=== PATIENT | male | born 1980 | race Hispanic/Latino ===

== ENCOUNTER 2024-11-16 11:53 | Emergency (ER) | payer OTHER, SELFPAY ==
[2024-11-16 11:58] VITALS: BP 166/93
[2024-11-16 15:07] VITALS: BP 134/78
--- NOTE | 2024-11-16 16:10 | ED.SKININJ ---
HPI-Injury
General
Chief Complaint: Skin Surface Trauma
Source: patient and fruit raiser (Language line)
Exam Limitations: none
Time Seen by Provider: 11/16/24 15:08
Nursing documentation reviewed up to this point in time: agreed with
History of Present Illness-Injury
Is this injury a work related problem?: Yes
Is pt an associate of [facility]/[place]?: No
Initial Injury comments:
Patient states a tree branch fell onto his head. Reports brief LOC. Sustained a large laceration to right posterior shoulder, contusion to right shoulder, sprain to left ankle. Incident occurred just [employer]. Tdap is UTD
Past History
Past History
ED Past Medical History: None
ED Past Surgical History: None
Social History
Tobacco: Non-smoker
Alcohol: None
Drug: None
Review of Systems
Review of Systems
Allergies reviewed?: Yes
All Other Systems: ROS reviewed and negative except as documented in HPI and ROS
Constitutional: Reports no symptoms
EENT: Reports no symptoms
Respiratory: Reports no symptoms
Cardiac: Reports no symptoms
ABD/GI: Reports no symptoms
: Reports no symptoms
Musculoskeletal: Reports joint pain (pain to left ankle, contusion right shoulder)
Skin: Reports other (laceration to right posterior ear)
Neurological: Reports headache
Psychiatric: Reports no symptoms
Skin Exam
Laceration
Right Posterior Ear:
Length in cm: 5
Orientation: vertical
Type of Laceration: layered
Any active bleeding?: low grade venous oozing
Distal skin color and temperature: normal-warm & good color
Normal distal neurovascular exam: Yes
Range of motion: full
Phy Exam
General Physical Exam
General Presentation: mild distress
General age: appears stated age
General Skin: warm and dry
General Habitus: normal
General Mental: alert
General Hydration: appears well hydrated
Eye Exam
Eye Exam: PERRL, cornea clear and conjunctiva normal
Neurological Exam
Neurological Exam: alert, oriented x3, CN II-XII intact, no motor deficits, no sensory deficits and speech normal
Musculoskeletal Exam
Musculoskeletal Exam: neuro vasc intact
Skin Exam
Skin Exam: normal color, warm/dry and no rash
Psychiatric Exam
Psychiatric Exam: normal mood/affect
Course
Orders/Labs/Results
Orders:
Orders
11/16/24 12:01
CT Head W/o Iv Contrast Stat
Comment:
Reason For Exam: pain, +LOC
Ankle, left 3 view CR [CR Ankle - Left Min 3 Views ] Stat
Comment:
Reason For Exam: pain
11/16/24 12:02
EKG [Electrocardiogram (*1)] Stat
Reason for Study: Vertigo / Dizzy
Shoulder, Right, Trauma [CR Shoulder, Trauma - Right] Stat
Comment:
Reason For Exam: pain/abrasion
11/16/24 16:04
Cephalexin Monohydrate [Keflex] 500 mg PO NOW STA
Vital Signs
Initial and Last Documented VS:
Initial Vital Signs
Temp Pulse Resp BP Pulse Ox
98.5 F 87 16 166/93 98
11/16/24 11:58 11/16/24 11:58 11/16/24 11:58 11/16/24 11:58 11/16/24 11:58
Last Documented Vital Signs
Temp Pulse Resp BP Pulse Ox
98.5 F 70 16 134/78 100
11/16/24 11:58 11/16/24 15:07 11/16/24 15:07 11/16/24 15:07 11/16/24 15:07
Procedures
Laceration Closure
Right Posterior Ear:
Status of Wound: clean
Description of Wound Edges: sharp
Preparation: cleaned with saline and cleaned with Betadine
Anesthesia: 1% Lidocaine
Wound exploration: explored to base- no FB
Type of Closure: layered closure
Skin Closure Material: 6-0 prolene (13) and 5-0 chromic gut
*Radiology
Radiology exam reviewed: radiology read reviewed
*Pulse Oximetry
Patient hypoxic: no
*Critical Care Note
Total Time (30-74mins, 75-104mins- exclusive of procedures): Not Applicable
ED Attending Note
-
Portions of this chart may have been created with voice recognition software.� Occasional wrong word or��sound alike� substitutions may have occurred due to the inherent limitations of voice recognition software.
Discharge Plan
Departure
Patient Disposition: Home (Routine Discharge)
Date of Disposition: 11/16/24
Time of Disposition: 16:04
Patient with high blood pressure during this ER visit?: No
Condition: Good
Covid-19: Not Applicable
Discharge Problem:
Head injury, Laceration of ear, Contusion of right shoulder, Ankle sprain
Instructions: Head injury in adults, Contusion (DC), Laceration Repair With Stitches (DC), Sprain (DC), Ibuprofen, Using Cold for Pain
Prescriptions:
New
cephalexin 500 mg capsule
500 mg PO BID 7 Days Qty: 14 0RF
Referrals:
NONE,* [Family Provider, Internal Medicine]
Stand Alone Forms: Return to Work
Activity Restrictions/Additional Instructions:
Follow up with your workman's comp provider on Tuesday. Sutures can be removed by your workman's comp provider in 5-7 days. Your prescription for your antibiotic was sent to [facility] in [place]
Interventions
Interventions:
*Risk Screen - Suicide Last Done: 11/16/24 11:58
*General Assessment Last Done: 11/16/24 15:07
*Neglect/Abuse Screening Last Done: 11/16/24 11:58
*ED- Fall Risk Assessment Last Done: 11/16/24 15:08
ED-Musculoskeletal Assessment Last Done: 11/16/24 15:08
ED-Skin Assessment Last Done: 11/16/24 13:58
Discharge Date and Time
Print Language: GEORGIAN
Musculoskeletal Injury Exam
Musculoskeletal Injury Exam
Right Shoulder:
Pain with Movement?: Moderate
Tender to palpation?: Moderate
Soft tissue swelling?: Mild
External deformity and angulation?: None
Joint effusion?: None
Contusion?: Moderate
Hematoma-local bleeding into tissue?: Mild
Strain- Sprain- Tear (Connective tissue injury)?: None
Crepitus with movement?: No
Joint instability?: No
Malalignment/deformity?: No
Range of motion: Full
Distal skin color and temperature: normal-warm & good color
Capillary Refill: normal
Normal distal neurovascular exam?: Yes
Peripheral Pulses: radial (right): 3+
Left Lateral Ankle:
Pain with Movement?: Moderate
Tender to palpation?: Moderate
Soft tissue swelling?: Mild
External deformity and angulation?: None
Joint effusion?: None
Contusion?: None
Hematoma-local bleeding into tissue?: None
Strain- Sprain- Tear (Connective tissue injury)?: Moderate
Crepitus with movement?: No
Joint instability?: No
Malalignment/deformity?: No
Range of motion: Limited
Distal skin color and temperature: normal-warm & good color
Capillary Refill: normal
Normal distal neurovascular exam?: Yes
Peripheral Pulses: posterior tibial (left): 3+ and dorsalis pedis (left): 3+
[2024-11-16] MEDS: KEFLEX 500 MG PO (16:24)
== END 2024-11-16 16:40 | disposition home or self-care (01) ==
LOC: EMR 11:53
PROVIDERS: EMERGENCY PHYSICIAN Emergency Medicine
DX: S01.311A Laceration without foreign body of right ear, initial encounter (principal); S40.011A Contusion of right shoulder, initial encounter; S93.402A Sprain of unspecified ligament of left ankle, initial encounter; W20.8XXA Other cause of strike by thrown, projected or falling object, initial encounter
CPT/HCPCS: 12052; 99284; 70450; 73030; 73610; 93005

== ENCOUNTER 2024-11-23 11:13 | Emergency (ER) | payer SELFPAY ==
[2024-11-23 11:16] VITALS: BP 147/95
--- NOTE | 2024-11-23 12:01 | ED.GENMED ---
History of Present Illness
General
Chief Complaint: Wound Check/Suture Removal
Source: patient
Time Seen by Provider: 11/23/24 11:50
History of Present Illness
History of Present Illness:
44-year-old male presenting back to the emergency department for suture removal from his right ear. Patient reports no complications following the laceration repair.
Past History
Past History
ED Past Medical History: None
ED Past Surgical History: None
Social History
Tobacco: Non-smoker
Alcohol: None
Drug: None
Living: with family
Review of Systems
Review of Systems
All Other Systems: ROS reviewed and negative except as documented in HPI and ROS
Phy Exam
Physical Exam
Physical Exam:
GENERAL: Alert , in no apparent distress
EYE: conjunctiva clear
Head: Normocephalic atraumatic
NECK: Supple,
ENT: mmm.
LUNGS: no acute respiratory distress
NEUROLOGICAL: Alert and oriented
SKIN: Warm and dry, Right ear: posterior auricle with sutures in place. no dehiscence. Portion of laceration still not fully approximated but no surrounding erythema or drainage
MUSCULOSKELETAL: well perfused.
PSYCH: Normal and appropriate interaction.
Scores
Heart Failure Risk
Heart Failure Risk Score: Not Applicable
Heart Score for Chest Pain Patients
STEMI patient?: Not applicable
Withdrawal Assessment of Alcohol
Withdrawal Assessment Completed?: Not applicable
Course
Vital Signs
Initial and Last Documented VS:
Initial Vital Signs
Temp Pulse Resp BP Pulse Ox
97.9 F 92 22 147/95 99
11/23/24 11:16 11/23/24 11:16 11/23/24 11:16 11/23/24 11:16 11/23/24 11:16
Last Documented Vital Signs
Temp Pulse Resp BP Pulse Ox
97.9 F 92 22 147/95 99
11/23/24 11:16 11/23/24 11:16 11/23/24 11:16 11/23/24 11:16 11/23/24 11:16
MDM/Problems Addressed
MDM/Problems Addressed:
44-year-old male presenting to the emergency department for suture removal. I removed some of the sutures however I had to leave [address] as the wound had still not fully approximated. I recommended the patient come back to the emergency
department in 3 days for suture. He is otherwise stable for discharge back home.
*Pulse Oximetry
Patient hypoxic: no
*Critical Care Note
Total Time (30-74mins, 75-104mins- exclusive of procedures): Not Applicable
Data Reviewed
Review of Other/Old Records Reveals: Records
ED Attending Note
-
Portions of this chart may have been created with voice recognition software.� Occasional wrong word or��sound alike� substitutions may have occurred due to the inherent limitations of voice recognition software.
Discharge Plan
Departure
Patient Disposition: Home (Routine Discharge)
Date of Disposition: 11/23/24
Time of Disposition: 12:01
Patient with high blood pressure during this ER visit?: Yes
Discharge Problem:
Encounter for removal of sutures
Instructions: Stitches Removal
Prescriptions:
No Action
cephalexin 500 mg capsule
500 mg PO BID 7 Days Qty: 14 0RF
Referrals:
NONE,* [Family Provider, Internal Medicine]
Stand Alone Forms: Return to Work
Activity Restrictions/Additional Instructions:
You still have [address] and these will need to be removed on Tuesday
Interventions
Interventions:
*Risk Screen - Suicide Last Done: 11/23/24 11:16
*General Assessment Last Done: 11/23/24 11:16
*Neglect/Abuse Screening Last Done: 11/23/24 11:16
*Nursing Disposition Last Done: 11/23/24 12:26
ED-Skin Assessment Last Done: 11/23/24 12:25
Discharge Date and Time
Discharge Date/Time: 11/23/24 12:26
Print Language: FIJIAN
== END 2024-11-23 12:26 | disposition home or self-care (01) ==
LOC: EMR 11:13
PROVIDERS: EMERGENCY PHYSICIAN Emergency Medicine
DX: Z48.02 Encounter for removal of sutures (principal)
CPT/HCPCS: 99282

== ENCOUNTER 2024-11-26 13:25 | Emergency (ER) | payer OTHER, SELFPAY ==
[2024-11-26 13:35] VITALS: BP 145/96
--- NOTE | 2024-11-26 14:23 | ED.GENMED ---
History of Present Illness
General
Chief Complaint: Wound Check/Suture Removal
Source: patient
Exam Limitations: none
Time Seen by Provider: 11/26/24 14:03
History of Present Illness
History of Present Illness:
44-year-old male with no significant past medical history presents to the emergency department for removal of sutures to his right ear. Patient reports that he was involved in an accident with a tree while at work on 11/16/2024. Patient had sutures
placed and then was advised to return on 11/23/2024. At that time, several sutures were removed however the wound was not completely approximated so he was advised to return in 3 days for suture removal. Patient reports that the wound appears to be
healing well. He denies increasing pain, swelling, redness, drainage of pus, fevers.
Past History
Past History
ED Past Medical History: None
ED Past Surgical History: None
Social History
Tobacco: Non-smoker
Alcohol: None
Drug: None
Living: with family
Review of Systems
Review of Systems
All Other Systems: Not applicable
Constitutional: Reports no symptoms
EENT: Reports no symptoms
Respiratory: Reports no symptoms
Cardiac: Reports no symptoms
ABD/GI: Reports no symptoms
: Reports no symptoms
Musculoskeletal: Reports no symptoms
Skin: Reports other (healing laceration)
Neurological: Reports no symptoms
Endocrine: Reports no symptoms
Hematologic/Lymphatic: Reports no symptoms
Psychiatric: Reports no symptoms
Phy Exam
General Physical Exam
General Presentation: well appearing and no apparent distress
General Skin: warm and dry
General Habitus: normal
General Mental: alert
General Hydration: appears well hydrated
ENT Exam
ENT Exam: EOMI
Pulmonary Exam
Pulmonary Exam: no respiratory distress
Neurological Exam
Neurological Exam: alert and oriented x3
Musculoskeletal Exam
Musculoskeletal Exam: other (Moves all extremities without difficulty)
Skin Exam
Skin Exam: other (laceration to the superior aspect of the right ear is well-healed, no swelling, erythema, drainage, no ttp)
Course
Vital Signs
Initial and Last Documented VS:
Initial Vital Signs
Temp Pulse Resp BP Pulse Ox
98.1 F 100 16 145/96 98
11/26/24 13:35 11/26/24 13:35 11/26/24 13:35 11/26/24 13:35 11/26/24 13:35
Last Documented Vital Signs
Temp Pulse Resp BP Pulse Ox
98.1 F 100 16 145/96 98
11/26/24 13:35 11/26/24 13:35 11/26/24 13:35 11/26/24 13:35 11/26/24 13:35
Procedures
Other
Indication for procedure:: Removal of sutures
Additional Procedure:
7 sutures were removed in the usual fashion. Patient tolerated the procedure well and there were no complications. Antibiotic ointment applied.
*Critical Care Note
Total Time (30-74mins, 75-104mins- exclusive of procedures): Not Applicable
Update Note
Update Note:
44-year-old male presents emergency department for evaluation of suture removal. Patient reports that the wound is healing well and denies any complications. On arrival, patient is mildly hypertensive, afebrile. On exam, patient is
well-appearing, he is in no acute distress, laceration appears to be well-healed. Sutures were removed in the usual fashion and there were no complications. Patient is safe for discharge to home with continued wound care instructions and return
precautions. He expressed understanding of the plan and agreed.
ED Attending Note
-
Portions of this chart may have been created with voice recognition software.� Occasional wrong word or��sound alike� substitutions may have occurred due to the inherent limitations of voice recognition software.
Discharge Plan
Departure
Patient Disposition: Home (Routine Discharge)
Date of Disposition: 11/26/24
Time of Disposition: 14:27
Patient with high blood pressure during this ER visit?: Yes
Condition: Good
Covid-19: Not Applicable
Discharge Problem:
Encounter for removal of sutures
Instructions: Stitches Removal
Prescriptions:
No Action
cephalexin 500 mg capsule
500 mg PO BID 7 Days Qty: 14 0RF
Referrals:
NONE,* [Family Provider, Internal Medicine]
Activity Restrictions/Additional Instructions:
You were seen in the emergency department for evaluation of suture removal. Your sutures were successfully removed while you were in the emergency department today. Please continue to keep the area clean by washing gently with soap and water, pat
dry, you may apply a thin layer of antibiotic ointment. Please return to the emergency department if you develop increasing pain, swelling, redness, drainage of pus, fever greater than 100.4 �F, or for any other worsening or concerning symptoms.
There is no evidence of blood clots in your wound or in your brain today.
Interventions
Interventions:
*Risk Screen - Suicide Last Done: 11/26/24 13:35
*General Assessment Last Done: 11/26/24 13:58
*Neglect/Abuse Screening Last Done: 11/26/24 13:35
*ED COVID-19 Vaccine History Last Done: 11/26/24 13:58
ED-Skin Assessment Last Done: 11/26/24 13:58
Discharge Date and Time
Print Language: SWEDISH
== END 2024-11-26 14:45 | disposition home or self-care (01) ==
LOC: EMR 13:25
PROVIDERS: EMERGENCY PHYSICIAN Student in an Organized Health Care Education/Training Program
DX: S01.311D Laceration without foreign body of right ear, subsequent encounter (principal); X58.XXXD Exposure to other specified factors, subsequent encounter
CPT/HCPCS: 99281

== ENCOUNTER 2024-11-28 15:40 | Emergency (ER) | payer SELFPAY ==
[2024-11-28 15:47] VITALS: BP 152/94
--- NOTE | 2024-11-28 16:24 | ED.GENMED ---
History of Present Illness
General
Chief Complaint: Musculo-Skeletal Complaint
Source: patient
Time Seen by Provider: 11/28/24 16:20
History of Present Illness
History of Present Illness:
44-year-old male seen in this emergency department a few times over the last few weeks, presents back to the emergency department due to continued pain and swelling in his left ankle which is attributed to sprained ankle from a few weeks ago while
at work. Patient works in [employer]. He denies any new injuries but states still having pain and feels that he is unable to continue working so came to the emergency department for a work note. Patient does not have any primary care provider to
follow-up with. He reports that he had an MRI a few days ago which did not show any significant abnormalities. Denies any fevers or infectious symptoms.
Past History
Past History
ED Past Medical History: None
ED Past Surgical History: None
Social History
Tobacco: Non-smoker
Alcohol: None
Drug: None
Living: with family
Review of Systems
Review of Systems
All Other Systems: ROS reviewed and negative except as documented in HPI and ROS
Phy Exam
Physical Exam
Physical Exam:
GENERAL: Alert , in no apparent distress
EYE: conjunctiva clear
Head: Normocephalic atraumatic
NECK: Supple,
ENT: mmm.
LUNGS: no acute respiratory distress
NEUROLOGICAL: Alert and oriented
SKIN: Warm and dry, skin intact.
MUSCULOSKELETAL: Left foot and ankle: There is mild to moderate soft tissue swelling and somewhat limited range of motion due to the swelling. Extremity is otherwise warm and well-perfused and neurovascularly intact
PSYCH: Normal and appropriate interaction.
Scores
Heart Failure Risk
Heart Failure Risk Score: Not Applicable
Heart Score for Chest Pain Patients
STEMI patient?: Not applicable
Withdrawal Assessment of Alcohol
Withdrawal Assessment Completed?: Not applicable
Course
Vital Signs
Initial and Last Documented VS:
Initial Vital Signs
Temp Pulse Resp BP Pulse Ox
98.6 F 94 18 152/94 98
11/28/24 15:47 11/28/24 15:47 11/28/24 15:47 11/28/24 15:47 11/28/24 15:47
Last Documented Vital Signs
Temp Pulse Resp BP Pulse Ox
98.6 F 94 18 152/94 98
11/28/24 15:47 11/28/24 15:47 11/28/24 15:47 11/28/24 15:47 11/28/24 15:47
MDM/Problems Addressed
Differential Diagnosis Includes:
Sprain, no findings on imaging to suggest fracture. Inflammatory process such as gout, infectious etiology such as septic arthritis or Lyme
MDM/Problems Addressed:
44-year-old male presented to the ER for requesting work note due to continued pain and swelling of the left ankle from injury. Patient currently does not have a primary care provider. I encouraged the patient to [facility] for
[facility] medical care given he does not currently have insurance. He would also likely need to follow-up with Ortho here as well. Considered inflammatory or infectious etiologies however much less likely given the swelling started when patient
injured his ankle.
*Pulse Oximetry
Patient hypoxic: no
*Critical Care Note
Total Time (30-74mins, 75-104mins- exclusive of procedures): Not Applicable
Data Reviewed
Review of Other/Old Records Reveals: Records and Radiology Studies
ED Attending Note
-
Portions of this chart may have been created with voice recognition software.� Occasional wrong word or��sound alike� substitutions may have occurred due to the inherent limitations of voice recognition software.
Discharge Plan
Departure
Patient Disposition: Home (Routine Discharge)
Date of Disposition: 11/28/24
Time of Disposition: 16:24
Patient with high blood pressure during this ER visit?: No
Discharge Problem:
Ankle pain, left
Instructions: Sprain (DC)
Prescriptions:
No Action
cephalexin 500 mg capsule
500 mg PO BID 7 Days Qty: 14 0RF
Referrals:
[facility] [[facility]]
Stand Alone Forms: Return to Work
Interventions
Interventions:
*Risk Screen - Suicide Last Done: 11/28/24 15:50
*Neglect/Abuse Screening Last Done: 11/28/24 15:50
*Nursing Disposition Last Done: 11/28/24 16:31
ED-Musculoskeletal Assessment Last Done: 11/28/24 16:30
Discharge Date and Time
Print Language: SPANISH
== END 2024-11-28 16:32 | disposition home or self-care (01) ==
LOC: EMR 15:40
PROVIDERS: EMERGENCY PHYSICIAN Emergency Medicine
DX: M25.572 Pain in left ankle and joints of left foot (principal); R22.42 Localized swelling, mass and lump, left lower limb
CPT/HCPCS: 99282